=== PATIENT | male | born 1990 | race African-American/Black ===

== ENCOUNTER 2019-10-02 14:26 | Emergency (ER) | payer MEDICAID, MEDICARE ==
[~2019-10-02] VITALS: Ht 165.1 cm; Wt 82.1 kg
[2019-10-02] MEDS ORDERED: ONDANSETRON HCL 4MG/2ML INJ IV STA (15:04)
[2019-10-02] MEDS ORDERED: KETOROLAC 60MG/2ML VIAL IM ONE (15:15)
[2019-10-02 15:35] LABS: BASOPHILS % 0.8 % (0.0-2.0); EOSINOPHILS % 0.7 % (0.0-5.0); HEMATOCRIT. 43.9 % (42.0-52.0); HEMOGLOBIN. 15.1 g/dL (14.0-18.0); LYMPHOCYTES % 22.3 % (20.0-50.0); MEAN CORPUSCULAR HEMOGLOBIN 27.8 pg (28.0-32.0); MEAN CORPUSCULAR VOLUME 80.8 fL (80.0-94.0); MEAN PLATELET VOLUME 8.7 fl (7.4-10.4); MONOCYTES % 6.5 % (2.0-8.0); NEUTROPHILS % 69.7 % (40.0-76.0); PLATELET 190 x1000/uL (130-400); RED BLOOD CELL COUNT 5.43 mill/uL (4.7-6.1); RED CELL DISTRIBUTION WIDTH 15.5 % (11.6-14.6)
[2019-10-02 15:41] LABS: CHLORIDE 102 mEq/L (98-107)
[2019-10-02] MEDS ORDERED: ONDANSETRON 4MG ODT PO ONE (16:15)
[2019-10-02 17:00] VITALS: BP 115/67
== END 2019-10-02 17:48 | disposition home or self-care (01) ==
LOC: ER 14:26
DX: R07.89 Other chest pain (principal); K92.89 Other specified diseases of the digestive system; R06.82 Tachypnea, not elsewhere classified; R03.0 Elevated blood-pressure reading, without diagnosis of hypertension; F17.210 Nicotine dependence, cigarettes, uncomplicated
CPT/HCPCS: 36415; 71045; 80053; 85025; 93005; 96372; 99285; J1885; Q0162

== ENCOUNTER 2020-03-07 15:02 | Emergency (ER) | payer MEDICAID ==
[~2020-03-07] VITALS: Ht 165.1 cm; Wt 73.0 kg
[2020-03-07] MEDS ORDERED: HYDROCODONE/ACETAMINOPHEN 5/325MG TABLET PO ONE (15:45)
[2020-03-07 16:43] VITALS: BP 143/89
== END 2020-03-07 17:34 | disposition home or self-care (01) ==
LOC: ER 15:02
DX: S39.012A Strain of muscle, fascia and tendon of lower back, initial encounter (principal); R07.81 Pleurodynia; F17.200 Nicotine dependence, unspecified, uncomplicated; Z98.890 Other specified postprocedural states; V43.52XA Car driver injured in collision with other type car in traffic accident, initial encounter; Y93.89 Activity, other specified; Y92.89 Other specified places as the place of occurrence of the external cause; Y99.8 Other external cause status
CPT/HCPCS: 71101; 72040; 72100; 72170; 73000; 99284